=== PATIENT | female | born 1945 | race Caucasian/White ===

== ENCOUNTER 2022-05-17 10:38 | Emergency (ER) | payer OTHER ==
[~2022-05-17] VITALS: Ht 170.2 cm; Wt 106.6 kg
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
--- NOTE | 2022-05-17 11:45 | NUR ---
at bedside for eval
[2022-05-17] MEDS ORDERED: HYDR-4209 PO (12:51)
[2022-05-17] MEDS ORDERED: ACETAMINOPHEN ES 500 MG TABLET ONE (12:53)
[2022-05-17] MEDS ORDERED: ACETAMINOPHEN ES 500 MG TABLET PO ONE (13:00)
--- NOTE | 2022-05-17 13:31 | NUR ---
Patient discharged to home in stable condition. Written and verbal after care instructions given. Patient verbalizes understanding of instruction.
[2022-05-17 13:32] VITALS: BP 161/81
== END 2022-05-17 13:32 | disposition admitted as inpatient to this hospital (09) ==
LOC: ER 11:01
DX: S20.214A Contusion of middle front wall of thorax, initial encounter (principal); S80.01XA Contusion of right knee, initial encounter; I10 Essential (primary) hypertension; I48.91 Unspecified atrial fibrillation; V89.2XXA Person injured in unspecified motor-vehicle accident, traffic, initial encounter; Y93.89 Activity, other specified; Y92.89 Other specified places as the place of occurrence of the external cause; Y99.8 Other external cause status
CPT/HCPCS: 71045-TC; 72074-TC; 73564-TC